=== PATIENT | male | born 1945 | race African-American/Black ===

== ENCOUNTER 2019-03-24 05:19 | Inpatient (IN) ==
[2019-03-24] MEDS ORDERED: MORPHINE IV ONE (05:35)
[2019-03-24 05:46] LABS: BASO# 0.03 X1000 (0.0-0.2); BASO% 0.4 % (0.0-0.8); EOS# 0.13 X1000 (0.0-0.7); EOS% 1.8 % (0.0-10.0); HEMATOCRIT 34.9 % (42.0-52.0); HEMOGLOBIN 11.4 g/dL (14.0-18.0); LYMPH# 2.71 X1000 (1.2-3.4); LYMPH% 37.6 % (20.5-51.1); MCH 30.5 PG (27-31); MCHC 32.7 g/dL (33-37); MCV 93.3 FL (81-99); MONO# 0.45 X1000 (0.11-0.59); MONO% 6.3 % (1.7-9.3); MPV 8.5 FL (7.4-10.4); NEUT# 3.88 X1000 (1.4-6.5); NEUT% 53.9 % (42.2-75.2); PLT 260 X1000 (130-400); RBC 3.74 XMIL (4.7-6.1); RDW 13.9 % (11.5-14.5)
[2019-03-24] MEDS ORDERED: ASPIRIN PO ONE (05:50)
--- NOTE | 2019-03-24 05:50 | PROVIDER DOCUMENTATION ---
HPI-General Adult - General Chief Complaint: Chest Pain Stated Complaint: DIZZY/CHEST PAIN Time Seen by Provider: 03/24/19 05:26 Source: patient, family Allergies/Adverse Reactions: Patient Allergies Allergy/AdvReac Type Severity Reaction Status Date / Time No Known Allergies Allergy Verified 03/24/19 07:45 Home Medications: Home Medication List Medication Instructions Recorded Confirmed Last Taken Type Aspirin 325 mg PO DAILY 07/30/12 03/24/19 03/23/19 18:00 History Metformin [Glucophage] 500 mg PO BID 07/30/12 03/24/19 03/23/19 18:00 History Famotidine 40 mg PO DAILY 02/21/15 03/24/19 03/23/19 18:00 History Tamsulosin [Flomax] 0.4 mg PO DAILY 01/31/16 03/24/19 03/23/19 18:00 History Bisacodyl [Dulcolax] 10 mg MI QHS #20 supp 02/03/16 03/24/19 03/23/19 08:00 Rx Cilostazol 100 mg PO BID 03/24/19 03/24/19 03/23/19 18:00 History Isosorbide Mononitrate [Isosorbide 60 mg PO DAILY #90 tab.er.24h 03/26/19 Unknown Rx Mononitrate ER] Metoprolol [Lopressor] 25 mg PO BID #60 tab 03/26/19 Unknown Rx Simvastatin 80 mg PO DAILY #90 tab 03/26/19 Unknown Rx - History of Present Illness -Gen Adult Nature of Presenting Problems: Pt presents with cp, started last night, left sided, no radiation, associated with light headedness, pmh of CABG, pt denies f/c, sanchez, sob, cough, ap, n/v/d. Pt is lying in bed in no acute distress. Location of Pain/Injury: reports: chest Pain Radiation: reports: no radiation Quality of Pain: reports: pressure, sharp Severity: reports: moderate Onset/Duration: reports: 1-3 hours ago Timing: reports: still present Context/Activities at Onset: reports: none Modifying Factors: improves with: nothing Associated Symptoms: reports: dizziness Similar Symptoms Previously?: No Recently seen or treated by another doctor?: No Review of Systems - Adult - REVIEW OF SYSTEMS - ADULT Constitutional: reports: no symptoms reported Eyes: reports: no symptoms reported Ears, Nose, Mouth & Throat: reports: no symptoms reported Cardiovascular: reports: see HPI Respiratory: reports: no symptoms reported Gastrointestinal: reports: no symptoms reported Genitourinary: reports: no symptoms reported Musculoskeletal: reports: no symptoms reported Integumentary: reports: no symptoms reported Neurological: reports: no symptoms reported Psychiatric: reports: no symptoms reported Endocrine: reports: no symptoms reported Hematologic/Lymphatic: reports: no symptoms reported Allergic/Immunologic: reports: no symptoms reported All Other Systems: Reviewed and Negative Past History - Adult - PAST MEDICAL HISTORY-ADULT Review of Records: reports: Old Records Reviewed, Nursing Assessment Review, Medications Reviewed, Social history reviewed & non-contributory. Cardiovascular: reports: cardiac disease, HTN, hyperlipidemia Endocrine/Immune: reports: Diabetes - PRIOR SURGERIES/PROCEDURES Surgical/Procedure History: reports: CABG, other (open heart) - IMMUNIZATION STATUS Childhood Immunizations: See Nurse Assessment Flu Vaccine: See Nurse Assessment Physical Exam-General - PHYSICAL EXAM-ADULT Initial Vital Signs Reviewed: Yes - CONSTITUTIONAL General Appearance: appears well - EYES Eyes: PERRL/EOMI - HEAD, EARS, NOSE, MOUTH & THROAT HENMT: normal ENT inspection - NECK Neck: non-tender, normal inspection - RESPIRATORY Respiratory: no respiratory distress, no accessory muscle use - CARDIOVASCULAR Cardiovascular: regular rate, rhythm - GASTROINTESTINAL (ABDOMEN) Abdominal Exam: normal bowel sounds, non tender, soft - LYMPHATIC Lymphatic: no adenopathy - MUSCULOSKELETAL Back Exam: normal inspection Extremity: normal range of motion - SKIN Integumentary: normal color - NEUROLOGIC Neurologic: grossly normal - PSYCHIATRIC Psych/Mental Status: normal mood/affect Progress - PLAN OF CARE/RESULTS Progress/Plan/Lab Results: Vital Signs - 8 hr 03/24/19 05:30 Temperature 97.6 F Pulse Rate 64 Respiratory Rate 18 Blood Pressure 111/61 O2 Sat by Pulse Oximetry 99 Orders Category Date Time Status Nursing- Obtain EKG ONCE Care 03/24/19 05:34 Ordered CHEST-1 VIEW [RAD] Stat Exams 03/24/19 05:34 Ordered CBC WITH ELECTRONIC DIFF [HEME] Stat Lab 03/24/19 05:34 Uncollected COMPREHENSIVE METABOLIC PANEL [CHEM] Stat Lab 03/24/19 05:34 Uncollected PRO B-NATRIURETIC PEPTIDE Stat Lab 03/24/19 05:34 Uncollected PROTIME WITH INR [COAG] Stat Lab 03/24/19 05:34 Uncollected PTT [COAG] Stat Lab 03/24/19 05:34 Uncollected TROPONIN T Stat Lab 03/24/19 05:34 Uncollected Morphine Med 03/24/19 05:35 Once 4 mg IV NOW ONE EKG [EKG] Stat Ther 03/24/19 05:34 Ordered hospitalist team paged by overnight physician for admit, call not returned prior to his end of shift I evaluated the patient upon arrival and reviewed labs, chest pain. nstemi, agree with management patient in no distress still having very mild pain, states improved vs prior hospitalist accounts payable analyst called back approximately 0730 stating its not a hospitalist patient. pcp is julian I had dr jordan paged dr. jordan returned call, asks for admission and skeleton orders. 0730 Result Diagrams: 03/26/19 07:34 03/26/19 07:34 - CONSULTS/PCP/HOSPITALIST Notification Consult Disposition: F/U in office - CHANGE OF SHIFT REPORT (ED Provider) 1 Report Given and Care Transferred to:: Dr. Rae Time of Transfer: 07:00 Departure - Departure Date of Disposition Decision: 03/24/19 Time of Disposition Decision: 07:44 DIAGNOSIS: Non-STEMI (non-ST elevated myocardial infarction) Chest pain Qualifiers: Chest pain type: unspecified Qualified Code(s): R07.9 - Chest pain, unspecified Disposition: ADMITTED INPATIENT 09 Certified Medical Emergency: Emergent Condition: Good - Critical Care Note This patient required my direct & personal management of CC.: Yes Total Time (mins): 35 Critical Care Statement: This patient required my direct personal management to treat or rule out processes, the absence of which, could potentiallly result in sudden, clinically significant life or limb threatening deterioration. Comments: NSTEMI, chest pain, elevated troponin Attestation - Physician/ JENIFER Attestation The physician spent face to face time with patient:: Yes Advanced Practice Provider documentation review:: Supervising physician onsite and consulted in the evaluation and care of this patient. The physician did have a face to face encounter with the patient.
[2019-03-24 05:55] LABS: INR 1.08; PROTIME 14.1 Seconds (11.0-16.0)
[2019-03-24 06:06] LABS: AGAP 10; ALB/GLOB RATIO 0.9; ALBUMIN 3.6 g/dL (3.5-5.0); ALKALINE PHOSPHATASE 84 U/L (32-122); BUN 14 mg/dL (8-22); CALCIUM 9.5 mg/dL (8.8-10.2); CHLORIDE 107 mmol/L (98-107); COSMO 286; CREATININE 1.3 mg/dL (0.7-1.2); ESTIMATED GFR > 60; GLUCOSE 181 mg/dL (70-104); GOT 34 U/L (10-34); GPT 11 U/L (10-44); POTASSIUM 4.8 mmol/L (3.5-5.1); SODIUM 141 mmol/L (136-145); TCO2 24 mmol/L (25-35); TOTAL PROTEIN 7.8 g/dL (6.3-8.3)
--- NOTE | 2019-03-24 06:28 | Diag Imaging Result Doc PS360 ---
CHEST-1 VIEW - 03/24/2019 INDICATION: chest pain COMPARISON: 02/03/2016 FINDINGS: Stable sternotomy wires. Stable metallic foreign bodies in the right arm. There are fine interstitial infiltrates in the lung bases bilaterally. Heart size is normal. No pneumothorax or pleural effusion. IMPRESSION: Fine interstitial infiltrates in the lung bases bilaterally. Likely represents pulmonary edema, although atypical pneumonia could also have this appearance. Electronically signed by Guillaume Hoffman 03/24/2019 6:26 AM
--- NOTE | 2019-03-24 07:51 | ED EKG INTERP ---
This chart was entered by Nubia Bonner Scribe, acting as scribe for Juancho Rae DO. EKG Interpretation - EKG Time of EKG reading by physician:: 05:26 EKG Read and Signed by:: Mihcael Orozco EKG Interpretation (*Must complete 3 of following elements*): Normal Rate: 63 Rhythm: nsr [place]: normal QRS: normal NV Interval: normal ST Wave: normal - EKG # 2 Time of EKG reading by physician:: 07:40 EKG Read and Signed by:: Juancho Rae EKG Interpretation (*Must complete 3 of following elements*): Abnormal Rate: 62 Rhythm: NSR [place]: normal NV Interval: normal ST Wave: non-specific ST changes Comments: no change vs prior Attestation - Physician/ JENIFER Attestation Patient care was provided by Advanced Practice Provider:: No The physician spent face to face time with patient:: Yes Advanced Practice Provider documentation review:: Supervising physician onsite and consulted in the evaluation and care of this patient. The physician did have a face to face encounter with the patient. This chart was documented by the indicated scribe, (Nubia Bonner Scribe) and accurately reflects the services I performed and decisions made by , Juancho Rae DO, as attested by the provider's signature.
[2019-03-24] MEDS ORDERED: MORPHINE IV PRN (08:17)
[2019-03-24] MEDS ORDERED: NITROGLYCERIN SL PRN (08:17)
--- NOTE | 2019-03-24 08:29 | EKG Report ---
Test Performed on : 03/24/2019 07:34:40 AM Test Reason : chest pain Blood Pressure : / mmHG Vent. Rate : 062 BPM Atrial Rate : 062 BPM P-R Int : 166 ms QRS Dur : 088 ms QT Int : 410 ms P-R-T Axes : 070 062 067 degrees QTc Int : 416 ms Normal sinus rhythm. Cannot rule out Inferior infarct , age undetermined Abnormal ECG When compared with ECG of 24-MAR-2019 05:26, (Unconfirmed) No significant change was found Unconfirmed Result
[2019-03-24] MEDS ORDERED: HEPARIN 25,000 UNITS/D5W 25,000 UNIT/250 ML IV.SOLN IV SCH (08:30)
--- NOTE | 2019-03-24 08:30 | EKG Report ---
Test Performed on : 03/24/2019 05:26:11 AM Test Reason : chest pain Blood Pressure : / mmHG Vent. Rate : 063 BPM Atrial Rate : 063 BPM P-R Int : 156 ms QRS Dur : 090 ms QT Int : 416 ms P-R-T Axes : 079 075 070 degrees QTc Int : 425 ms Normal sinus rhythm. Normal ECG When compared with ECG of 03-FEB-2016 20:05, No significant change was found Unconfirmed Result
[2019-03-24] MEDS ORDERED: IMDUR PO SCH ×2 (09:00→10:00)
[2019-03-24] MEDS ORDERED: LOPRESSOR PO SCH (09:00)
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
[2019-03-24] MEDS: NS 1,000 ML IV SCH ×3 (09:57→23:34)
[2019-03-24] MEDS ORDERED: XYLOCAINE 1% ONE ×2 (09:57→13:01)
[2019-03-24] MEDS ORDERED: HEPARIN IV ONE (10:16)
[2019-03-24] MEDS: LOPRESSOR PO SCH ×2 (10:24→21:14)
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
[2019-03-24 11:11] LABS: CK INDEX 8.6 (0.0-2.5); CK-MB 38.11 ng/mL (0.0-5.0)
--- NOTE | 2019-03-24 12:49 | ECHO REPORT ---
ORDER DATE: 03/24/2019 INDICATION: Chest pain, coronary disease, bypass and diabetes. FINDINGS: 1. Right atrium appears normal in size at 3.6 cm. 2. Mild tricuspid regurgitation. RV systolic pressure 31. 3. Normal RV size and systolic function. 4. No significant pulmonic insufficiency. 5. Normal left atrial size with a volume index of 27, dimension of 3.2. 6. No mitral valve prolapse. Mild mitral regurgitation. 7. Normal LV size, end-diastolic dimension of 5 cm. Normal wall thicknesses with posterior and interventricular septal wall thickness of 0.8 cm each. Normal LV systolic function. Estimated EF of 60% with normal wall motion. 8. Aortic valve opens well. It is trileaflet. No evidence of stenosis or insufficiency. 9. Aorta appears normal in visualized segments. 10. No pericardial effusion identified. cc: MD Torsten La MD
[2019-03-24] MEDS ORDERED: NITROGLYCERIN ONE (13:01)
[2019-03-24] MEDS ORDERED: HEPARIN 1000 UNITS/NS 2,000 UNIT/1,000 ML IV.SOLN ONE (13:02)
[2019-03-24] MEDS ORDERED: VERSED ONE (13:59)
[2019-03-24] MEDS ORDERED: DILAUDID ONE (14:00)
[2019-03-24] MEDS ORDERED: CLAVE TWINSITE 32 IN 11959 ONE (14:02)
--- NOTE | 2019-03-24 15:22 | CARDIAC CATH REPORT ---
PROCEDURE NAME: - INDICATION: Non-ST elevation [place]. PROCEDURES PERFORMED: 1. Left heart catheterization. 2. Selective coronary angiography. 3. YOSSI angiography. 4. Saphenous vein graft angiography. PROCEDURE IN DETAIL: Mr. Alcala was brought to the catheterization laboratory in the fasting state. He was prepped and draped in the usual sterile fashion. He was anesthetized over the left radial artery. After Robinson's test was proved adequate, a 5-Kiswahili sheath was placed via true Seldinger technique. Radial cocktail was administered. Catheters were introduced. Hemodynamic measurements were made in the ascending thoracic aorta. Coronary angiography was performed in multiple views using JL3.5 and JR4 diagnostic catheters. Left heart catheterization, YOSSI and saphenous vein graft angiography were performed using the JR4. At the conclusion of the procedure, all sheaths and catheters were removed. TR band was left inflated at 8 mL of air with good capillary refill and good hemostasis. FINDINGS: 1. The left main is normal. 2. Left anterior descending has severe proximal disease with mild to moderate mid vessel and mild distal vessel disease seen both through redding vessel injection as well as YOSSI injection. There is a moderate-sized first diagonal that originates at the severe proximal LAD lesion that has severe ostial disease. 3. Circumflex has moderate diffuse disease through the proximal, mid, and distal vessel. It does not appear to have any severe lesions throughout its course. 4. Right coronary is occluded in the proximal vessel with moderate diffuse disease in the mid and distal vessel visualized via injection of the SVG to the RCA. 5. The YOSSI appears to be normal throughout its course. 6. The vein graft to the RCA has mild luminal irregularities noted throughout its course. 7. Aortic blood pressure 121/44 with a mean of 73. Left ventricular pressure 111/6 with an LVEDP of 8. ASSESSMENT: Mr. Alcala is a 73-year-old gentleman with a history of bypass who came in with chest pain and positive cardiac enzymes. PLAN: He appears to have a severe lesion in his first diagonal that appears to be the most likely lesion resulting in his small infarct. Would recommend medical therapy at this point as he does not appear to be on multiple antianginals. The case was discussed with Dr. Negrete. cc: MD Torsten La MD [facility]
[2019-03-24 17:55] LABS: CK INDEX 7.1 (0.0-2.5); CK-MB 29.3 ng/mL (0.0-5.0)
[2019-03-24] MEDS ORDERED: LOPRESSOR PO ONE (19:10)
[2019-03-24] MEDS ORDERED: TOPROL XL PO ONE (19:12)
[2019-03-24] MEDS ORDERED: ZOCOR PO SCH (21:00)
[2019-03-24] MEDS: ZOCOR PO SCH (21:13)
[2019-03-24] MEDS: HUMULIN R SUBQ SCH (21:13)
[2019-03-25 01:52] LABS: CK INDEX 4.5 (0.0-2.5); CK-MB 15.99 ng/mL (0.0-5.0)
[2019-03-25] MEDS: HUMULIN R SUBQ SCH ×4 (06:13→21:36)
[2019-03-25] MEDS ORDERED: PRILOSEC PO SCH (07:00)
[2019-03-25] MEDS: IMDUR PO SCH (08:35)
[2019-03-25] MEDS: TOPROL XL PO SCH (08:35)
[2019-03-25] MEDS: NS 1,000 ML IV SCH ×2 (12:10→23:00)
--- NOTE | 2019-03-25 14:17 | PROGRESS NOTE ---
DATE: 03/25/2019 SUBJECTIVE: Patient continues without chest discomfort or shortness of breath on room air. He has not ambulated very much at this point. OBJECTIVE: Vital signs: Blood pressure 107/60, heart rate 58 and regular with ECG monitor showing sinus rhythm. Oxygen saturation 100% on room air. There is no significant jugular venous distention. Chest: Clear to auscultation bilaterally. Cardiac: Reveals a regular rate and rhythm without appreciable murmur or gallop. Extremities: There is no evidence of peripheral edema. LABORATORY DATA: Includes initial CPK of 414 with a followup CPK of 357, initial CPK MB of 29.3 with a CPK-MB index of 7.1 and followup CPK-MB of 15.99 with CPK-MB index of 4.5, initial troponin 0.252 with followup troponins of 0.442, 0.564, and 0.822. IMPRESSION: 1. Small non-ST elevation myocardial infarction. 2. Atherosclerotic coronary disease with previous coronary artery bypass grafting approximately 10 years ago. Coronary angiography this admission demonstrates patent a patent left internal mammary artery, graft to left anterior descending coronary and patent saphenous vein graft to the distal right coronary artery. There was severe atherosclerotic disease in the proximal left anterior descending coronary that appeared to jeopardize coronary flow to small diagonal branch. Left circumflex coronary artery demonstrated mild to moderate coronary atherosclerosis but no high-grade coronary stenosis. Medical management felt to be most appropriate. 3. Peripheral vascular disease. 4. Type 2 diabetes mellitus. 5. Hypertension. 6. Chronic ongoing cigarette use. RECOMMENDATIONS: 1. Continue current augmented medical therapy for angina/atherosclerotic coronary artery disease. 2. Encouraged patient to ambulate and monitor in the hospital another 24 hours. If he is clinically stable without angina by tomorrow afternoon, it would be reasonable for him to be discharged home on medical therapy. cc: MD Torsten Gómez MD
[2019-03-25] MEDS: ZOCOR PO SCH (20:51)
[2019-03-25] MEDS ORDERED: ASPIRIN PO SCH (21:00)
--- NOTE | 2019-03-25 21:41 | PROGRESS NOTE ---
DATE: 03/25/2019 SUBJECTIVE: The patient is doing better, eating well. OBJECTIVE: Temperature is 98 degrees. Vitals are stable.HEENT: Within normal limits. Chest: Clear. Heart: Sounds are regular. Abdomen: Belly is soft, nontender. Good bowel sounds. Neurologic: No neurological deficits. LABORATORY DATA: He has a positive CK and troponin and CK was coming down. ASSESSMENT AND PLAN: Small non-ST elevated myocardial infarction. Left heart catheterization reported patent left internal mammary artery graft to left anterior descending and patent saphenous vein graft to the distal right coronary artery. Severe atherosclerotic changes in proximal left anterior descending jeopardizing the flow to the small diagonal branch and left circumflex. Mild to moderate atherosclerosis. Continue medical management. Currently on aspirin, IV fluids, metoprolol 75 daily, isosorbide 60 daily, simvastatin 80 daily. Check the labs in the morning. If he is stable, we will discharge in the morning. LEVEL DOCUMENTATION: 25 minutes. cc: Torsten Seth MD
[2019-03-26] MEDS: NS 1,000 ML IV SCH (04:01)
[2019-03-26] MEDS: HUMULIN R SUBQ SCH ×2 (06:32→12:31)
[2019-03-26 08:41] LABS: BASO# 0.02 X1000 (0.0-0.2); BASO% 0.3 % (0.0-0.8); EOS# 0.19 X1000 (0.0-0.7); EOS% 2.7 % (0.0-10.0); HEMATOCRIT 31.9 % (42.0-52.0); HEMOGLOBIN 10.7 g/dL (14.0-18.0); LYMPH# 2.12 X1000 (1.2-3.4); LYMPH% 29.9 % (20.5-51.1); MCHC 33.5 g/dL (33-37); MCV 92.5 FL (81-99); MONO# 0.54 X1000 (0.11-0.59); MONO% 7.6 % (1.7-9.3); MPV 9.2 FL (7.4-10.4); NEUT# 4.21 X1000 (1.4-6.5); NEUT% 59.5 % (42.2-75.2); PLT 246 X1000 (130-400); RBC 3.45 XMIL (4.7-6.1); RDW 13.5 % (11.5-14.5); WBC 7.08 X1000 (4.8-10.8)
[2019-03-26 09:03] LABS: AGAP 10; BUN 10 mg/dL (8-22); CALCIUM 8.8 mg/dL (8.8-10.2); CHLORIDE 109 mmol/L (98-107); COSMO 277; CREATININE 0.9 mg/dL (0.7-1.2); ESTIMATED GFR > 60; GLUCOSE 114 mg/dL (70-104); POTASSIUM 3.4 mmol/L (3.5-5.1); SODIUM 139 mmol/L (136-145); TCO2 20 mmol/L (25-35)
[2019-03-26 09:07] LABS: CK PROFILE 213 U/L (24-204)
[2019-03-26] MEDS: TOPROL XL PO SCH (09:29)
[2019-03-26] MEDS: IMDUR PO SCH (09:29)
[2019-03-26 09:36] LABS: CK INDEX 1.5 (0.0-2.5); CK-MB 3.18 ng/mL (0.0-5.0)
[2019-03-26 10:59] VITALS: BP 134/71
[2019-03-26] MEDS ORDERED: KLOR-CON PO ONE (12:30)
--- NOTE | 2019-03-26 15:37 | PROGRESS NOTE ---
DATE: 03/26/2019 SUBJECTIVE: Patient is ambulatory and continues without chest discomfort or shortness of breath on room air. OBJECTIVE: Vital Signs: Blood pressure 134/71, heart rate 73, and oxygen saturation 98% on room air. There is no significant jugular venous distention. Chest is clear to auscultation bilaterally. Cardiac: Reveals a regular rate and rhythm without appreciable murmur or gallop. There is no evidence of peripheral edema. LABORATORY DATA: Includes a white blood cell count 7.08, hematocrit 31.9, hemoglobin 10.7, and platelet count 246,000. Sodium 139, potassium 3.4, chloride 109, and carbon dioxide 20. BUN 10 and creatinine 0.9. IMPRESSION: 1. Recent small non-ST elevation myocardial infarction. 2. Atherosclerotic coronary disease with history of previous coronary bypass grafting. Coronary angiography this admission. Dictates augmented medical therapy. 3. Peripheral vascular disease. 4. Type 2 diabetes mellitus. 5. Hypertension. 6. Chronic ongoing cigarette use. RECOMMENDATIONS: 1. Continue current augmented medical therapy for angina/atherosclerotic coronary disease. 2. Encouraged patient to discontinue cigarette use. 3. Reasonable for patient to be discharged this evening. I would be glad to see him again for further followup in approximately 2 weeks. cc: MD Torsten Gómez MD
--- NOTE | 2019-03-27 22:13 | DISCHARGE SUMMARY ---
ADMISSION DATE: 03/24/2019 DISCHARGE DATE: 03/26/2019 DISCHARGING DIAGNOSIS: Acute PR, non ST elevated myocardial infarction. SECONDARY DIAGNOSIS: 1. CAD status post bypass surgery by Dr. Ha in 2006. 2. Benign prostatic hypertrophy. 3. Coronary artery disease. 4. Type 2 diabetes. 5. Hypertension. 6. PAD, status post bifemoral bypass surgery. CONSULTS: Paco Negrete. PROCEDURES: Left heart catheterization appears to be a severe lesion. First diagonal with a small infarct. Left main is normal. LAD has severe proximal disease. The vein graft to RCA is intact. The BHAGAT is intact to LAD. Echocardiography report: Ejection fraction 60%, no wall motion abnormalities. No significant valvular heart disease. BRIEF HISTORY: Please see the H and P that was done on 03/24/2019. In brief, he is a 73-year-old male with existing heart disease status post bypass surgery as well as hiatal bifemoral surgery under medical treatment, admitted to the hospital with chest pain. Positive cardiac enzymes. EKG nondiagnostic. Echocardiogram was no significant wall motion abnormalities. In light of aortobifemoral bypass, Dr. Velez did a left heart catheterization of the radial artery. The findings: A small diagonal branch was occluded and the aroldo-infarct area is very small. He did not have any significant wall motion abnormalities. Dr. Negrete recommended aggressive medical management. Patient was pain-free. No shortness of breath. LABORATORY DATA: He had a peak CK, was 414 and slowly came back normal. Positive troponin. CBC: White cell count 7, hematocrit 32, platelets 246,000. PT/INR is normal and BUN 139, potassium 3.4, BUN 10, creatinine 0.9, glucose 114, calcium 8.8. DISPOSITION: The patient has been discharged home with the following instructions. Metformin 500 p.o. b.i.d., aspirin 325 daily, isosorbide 60 daily, metoprolol 25 p.o. b.i.d., simvastatin 80 daily, Pletal 100 p.o. b.i.d., Flomax 0.4 mg daily. Keep the LDL less than 70. Keep the A1c below 7 and follow up outpatient in my office in 2 weeks. cc: MD Paco Daly MD
== END 2019-03-26 15:30 | disposition home or self-care (01) | DRG 282 ==
LOC: ED 05:19 → 3S 07:42 → 2N 12:11
PROVIDERS: ADMIT Internal Medicine; ATTEND Internal Medicine